=== PATIENT | female | born 1995 | race Caucasian/White ===

== ENCOUNTER 2019-09-03 07:11 | Emergency (ER) | payer SELFPAY ==
--- NOTE | 2019-09-03 07:58 | EDM.PDOC ---
ED HPI GENERAL MEDICAL PROBLEM - General Chief Complaint: Genitourinary Problem Stated Complaint: THINKS SHE MIGHT HAVE KIDNEY INFECTION Time Seen by Provider: 09/03/19 07:45 Source of Information: Reports: Patient History Limitations: Reports: No Limitations - History of Present Illness INITIAL COMMENTS - FREE TEXT/NARRATIVE: Patient presented to the ED because of 1 week h/o dysuria,urgency and frequency. She also c/o nausea but no vomiting and had a low grade fever. The pain is dull over the left flank area,5/10. Generalized Pain Score (Numeric/FACES): 8 - Related Data Allergies Allergy/AdvReac Type Severity Reaction Status Date / Time No Known Allergies Allergy Verified 09/03/19 07:39 Home Meds: Home Meds NK [No Known Home Meds] 09/03/19 [History] Past Medical History - Past Health History Medical/Surgical History: Denies Medical/Surgical History ED ROS GENERAL - Review of Systems Review Of Systems: See Below Constitutional: Reports: No Symptoms HEENT: Reports: No Symptoms Respiratory: Reports: No Symptoms Cardiovascular: Reports: No Symptoms, Palpitations GI/Abdominal: Reports: No Symptoms, Other (left flank pain) : Reports: Dysuria, Flank Pain Musculoskeletal: Reports: No Symptoms Skin: Reports: No Symptoms Neurological: Reports: No Symptoms ED EXAM, RENAL/ - Physical Exam Exam: See Below Exam Limited By: No Limitations General Appearance: Alert, No Apparent Distress Ears: Normal External Exam, Normal Canal, Hearing Grossly Normal Nose: Normal Inspection, Normal Mucosa Throat/Mouth: Normal Inspection, Normal Lips, Normal Teeth, Normal Gums, Normal Oropharynx, Normal Voice, No Airway Compromise Head: Atraumatic, Normocephalic Neck: Normal Inspection, Supple, Non-Tender, Full Range of Motion Respiratory/Chest: No Respiratory Distress, Lungs Clear, Normal Breath Sounds, No Accessory Muscle Use Cardiovascular: Normal Peripheral Pulses, Regular Rate, Rhythm, No Edema, No Gallop GI/Abdominal: Normal Bowel Sounds, Soft, Other (left CVAT) Course - Vital Signs Text/Narrative:: labs reviewed and discussed with patient Zofran ODT levaquin 750 mg Tylenol 1000 mg po x1 ibuprofen 800 mg po x1 - Orders/Labs/Meds Labs: Laboratory Tests 09/03/19 Range/Units 07:40 Urine Color Yellow (YELLOW) Urine Appearance Cloudy (CLEAR) Urine pH 6.0 (5.0-6.5) Ur Specific [place] 1.015 (1.010-1.025) Urine Protein Trace (NEGATIVE) mg/dL Urine Glucose (UA) Normal (NORMAL) mg/dL Urine Ketones 15 H (NEGATIVE) mg/dL Urine Occult Blood Large H (NEGATIVE) Urine Nitrite Negative (NEGATIVE) Urine Bilirubin Negative (NEGATIVE) Urine Urobilinogen Normal (NEGATIVE) mg/dL Ur Leukocyte Esterase Large H (NEGATIVE) Urine RBC >100 H (0-5) Urine WBC Packed H (0-5) Ur Squamous Epith Cells Few H (NS,R,O) Urine Bacteria Many H (NS) Meds: Medications Discontinued Medications Generic Name Dose Route Start Last Admin Trade Name Freq PRN Reason Stop Dose Admin Acetaminophen 1,000 mg 09/03/19 07:52 Tylenol Extra Strength PO 09/03/19 07:53 ONETIME ONE Ibuprofen 800 mg 09/03/19 07:52 Motrin PO 09/03/19 07:53 ONETIME ONE Levofloxacin 750 mg 09/03/19 08:11 Levaquin PO 09/03/19 08:12 ONETIME ONE Ondansetron HCl 4 mg 09/03/19 07:48 Zofran Odt PO 09/03/19 07:49 ONETIME ONE Departure - Departure Time of Disposition: 08:25 Disposition: Home, Self-Care 01 Condition: Good Clinical Impression: Pyelonephritis, Pyelonephritis - Discharge Information *PRESCRIPTION DRUG MONITORING PROGRAM REVIEWED*: No *COPY OF PRESCRIPTION DRUG MONITORING REPORT IN PATIENT [place]: No Referrals: PCP,None [Ordering Only Provider] - Forms: ED Department Discharge Additional Instructions: Please read discharge instructions on pyelonephritis/kidney infection Increase oral fluids Zofran ODT 4 mg every 4 hours as needed for nausea Levaquin 750 mg once daily for 5 days starting 09/04/2019 Ibuprofen 800 mg with tylenol 1000 mg every 8 hours as needed for pain Folloe up if symptoms persist or worsens
[2019-09-03] MEDS: Ondansetron 4 MG Tab.DIS PO ONE (08:18)
[2019-09-03] MEDS: Ibuprofen 800 MG Tab PO ONE (08:18)
[2019-09-03] MEDS: Acetaminophen 500 MG Tab PO ONE (08:18)
[2019-09-03] MEDS: Levofloxacin 250 MG Tab PO ONE (08:21)
== END 2019-09-03 08:40 | disposition home or self-care (01) ==
LOC: FB.ED 07:11
DX: N12 Tubulo-interstitial nephritis, not specified as acute or chronic (principal)
CPT/HCPCS: 81001; 87086; 87088; 87186; 99283; A9270

== ENCOUNTER 2023-10-05 15:16 | Emergency (ER) | payer OTHER | END 2023-10-05 16:28 | disposition home or self-care (01) | LOC: FB.ED 15:16 | DX: S02.2XXA Fracture of nasal bones, initial encounter for closed fracture (principal); S09.90XA Unspecified injury of head, initial encounter; G44.209 Tension-type headache, unspecified, not intractable; F17.210 Nicotine dependence, cigarettes, uncomplicated; W22.8XXA Striking against or struck by other objects, initial encounter; Y92.89 Other specified places as the place of occurrence of the external cause; Y99.0 Civilian activity done for income or pay | CPT/HCPCS: 99283 ==

== ENCOUNTER 2024-12-29 11:11 | Emergency (ER) | payer BC ==
[2024-12-29 11:33] LABS: BASOPHILS ABSOLUTE AUTO 0.1 x10-3/uL (0.0-0.1); BASOPHILS PERCENT AUTO 0.6 % (0.2-1.5); EOSINOPHILS ABSOLUTE AUTO 0.1 x10-3/uL (0.0-0.8); EOSINOPHILS PERCENT AUTO 1.3 % (0.6-8.1); HEMATOCRIT 43.1 % (34.2-48.2); HEMOGLOBIN 14.8 g/dL (11.4-15.5); LYMPHOCYTES ABSOLUTE AUTO 2.5 x10-3/uL (1.0-4.4); LYMPHOCYTES PERCENT AUTO 27.4 % (18.4-52.1); MEAN CORPUSCULAR HGB CONC 34.3 g/dL (31.9-34.8); MEAN CORPUSCULAR VOLUME 87.5 fL (76.7-100.5); MEAN PLATELET VOLUME 8.4 fL (7.1-12.4); MONOCYTES ABSOLUTE AUTO 0.5 x10-3/uL (0.3-1.0); MONOCYTES PERCENT AUTO 5.7 % (4.4-15.7); PLATELET COUNT,PLT 368 x10(3)uL (151-488); RED BLOOD CELL COUNT 4.92 x10(6)uL (3.60-5.20); RED CELL DISTRIBUTION WIDTH 13.3 % (12.3-16.5); WHITE BLOOD CELL COUNT,WBC 9.3 x10-3/uL (3.0-10.3)
[2024-12-29] MEDS: Sodium Chloride 0.9% 10 ML Syringe FLUSH PRN (11:35)
[2024-12-29] MEDS: LORazepam 2 MG/ML SDV IVPUSH ONE (11:35)
[2024-12-29] MEDS: Ondansetron 4 MG/2 ML SDV IVPUSH ONE (11:36)
[2024-12-29 11:37] LABS: BLOOD UREA NITROGEN,BUN 7 mg/dL (7-18); CARBON DIOXIDE,CO2 23 mmol/L (21-32); CHLORIDE,CL 100 mmol/L (100-110); ESTIMATED GFR 79 mL/min (>60); GLUCOSE RANDOM 118 mg/dL (80-116); POTASSIUM,K 3.1 mmol/L (3.5-5.3); SODIUM,NA 138 mmol/L (135-145)
[2024-12-29] MEDS: Sodium Chloride 0.9% 1,000 ML IV ONE ×2 (11:37→12:41)
[2024-12-29 11:43] LABS: A/G RATIO 1.2; ALANINE AMINOTRANSFERASE,ALT 19 U/L (12-36); ALBUMIN 4.1 g/dL (3.5-5.2); ALKALINE PHOSPHATASE 90 IU/L (56-112); ASPARTATE AMNIOTRANSFERASE,AST 16 IU/L (5-25); BILIRUBIN TOTAL 0.5 mg/dL (0.1-1.3); PROTEIN TOTAL,TP 7.4 g/dL (6.0-8.0)
[2024-12-29 11:49] LABS: LACTIC ACID 3.4 mmol/L (0.4-2.0)
[2024-12-29] MEDS: SUMAtriptan 6 MG/0.5 ML SDV SUBCUT ONE (12:07)
[2024-12-29 12:44] LABS: BILIRUBIN,URINE NEGATIVE (NEGATIVE); GLUCOSE,URINE NORMAL (NORMAL); KETONES,URINE 15 mg/dL (NEGATIVE); LEUKOCYTE ESTERASE,URINE NEGATIVE (NEGATIVE); NITRITE,URINE NEGATIVE (NEGATIVE); OCCULT BLOOD,URINE NEGATIVE (NEGATIVE); PROTEIN,URINE NEGATIVE (NEGATIVE); UROBILINOGEN,URINE NORMAL (NEGATIVE)
[2024-12-29 12:47] LABS: APPEARANCE,URINE CLEAR (CLEAR); COLOR,URINE YELLOW (YELLOW)
[2024-12-29] MEDS: Potassium Chloride 20 MEQ Tab.ER PO ONE (13:57)
== END 2024-12-29 14:00 | disposition home or self-care (01) ==
LOC: FB.ED 11:11
DX: G43.009 Migraine without aura, not intractable, without status migrainosus (principal); E86.0 Dehydration; E87.6 Hypokalemia; F41.0 Panic disorder [episodic paroxysmal anxiety]; F17.290 Nicotine dependence, other tobacco product, uncomplicated; Z79.899 Other long term (current) drug therapy
CPT/HCPCS: 36415; 80053; 81003; 81025; 83605; 85025; 86140; 96361; 96372; 96374; 96375; 99284; 99284-25; A9270-GY; J2060; J2405; J3030; J7030